=== PATIENT | male | born 1975 | race Caucasian/White ===

== ENCOUNTER 2017-08-17 16:35 | Inpatient (IN) | END 2017-09-01 15:20 | disposition home or self-care (01) | DRG 840 ==

== ENCOUNTER 2018-11-28 12:00 | Emergency (ER) | payer OTHER ==
[~2018-11-28] VITALS: Wt 89.0 kg
[~2018-11-28 12:00] MED LIST: HYDR25TA6 PO; LOPE2CAP PO; METO10TA3 PO; ONDA8TAB9 PO; POTA-57 PO; RANI150T35 PO; Saccharomyces Boulardii PO; TRAM50TA PO
[2018-11-28 12:04] VITALS: BP 134/64; PULSE 64; RESP 18
[2018-11-28] MEDS ORDERED: POLYMYXIN/TRIMETHOPRIM 10 ML OPH BOTH EYES ONE (13:00)
[2018-11-28] MEDS ORDERED: AMOX500C2 PO (13:08)
[2018-11-28] MEDS ORDERED: IBUP-1542 PO (13:09)
[2018-11-28] MEDS ORDERED: POLY10DR19 BOTH EYES (13:11)
--- NOTE | 2018-11-28 13:30 | ERD ---
ER Documentation Chief Complaint Chief Complaint TY EYE DISCHARGE HPI 43-year-old male with history of non-Hodgkin's lymphoma with completion of chemotherapy on February 12 presents with complaint of bilateral eye redness and discharge since yesterday. In addition patient states he has had a sore throat for the past week. Denies drooling, trismus, difficulty swallowing, muffled voice, difficulty breathing, rash, or neck stiffness. Patient also denies any eye pain, vision problems, impaired EOMs. Patient denies any fevers, chills, nausea, vomiting, diarrhea, productive coughs, weight loss, fatigue. ROS All systems reviewed and are negative except as per history of present illness. Medications Home Meds Active Scripts Polymyxin B Sulfate-TMP* (Polymyxin B-TMP Eye Drops*) 10 Ml Drops, 1 DROP BOTH EYES QID for 7 Days, EA Prov:WENDI TELLES 11/28/18 Ibuprofen* (Motrin*) 600 Mg Tab, 600 MG PO Q6, #30 TAB Prov:WENDI TELLES 11/28/18 Amoxicillin* (Amoxicillin*) 500 Mg Cap, 500 MG PO BID for 10 Days, CAP Prov:WENDI TELLES 11/28/18 Ondansetron Hcl* (Zofran*) 8 Mg Tablet, 8 MG PO Q6H PRN for NAUSEA AND OR VOMITING, #30 TAB Prov:ALMITA PAL NP 09/01/17 Metoclopramide Hcl* (Metoclopramide Hcl*) 10 Mg Tablet, 10 MG PO TID, #90 TAB Prov:ALMITA PAL NP 09/01/17 [Saccharomyces Boulardii] 250 MG CAP No Conflict Check, 250 MG PO BID, #60 TAB Prov:ALMITA PAL NP 09/01/17 Potassium Chloride* (Klor-Con*) 20 Meq Tabsr, 20 MEQ PO DAILY, #30 TAB Prov:ALMITA PAL NP 09/01/17 Hydrochlorothiazide* (Hydrochlorothiazide*) 25 Mg Tab, 25 MG PO DAILY, #30 TAB Prov:ALMITA PAL NP 09/01/17 Reported Medications Loperamide Hcl* (Imodium*) 2 Mg Capsule, 2 MG PO .WITH EACH DIARRHEA PRN for DIARRHEA, CAP MAX 16 mg/day 08/17/17 Tramadol Hcl* (Ultram*) 50 Mg Tablet, 50 MG PO Q6H PRN for PAIN, TAB 08/17/17 Ranitidine Hcl* (Zantac*) 150 Mg Tablet, 150 MG PO BID, #60 TAB 08/17/17 Allergies Allergies: Coded Allergies: No Known Allergy (Unverified , 11/28/18) PMhx/Soc History of Surgery: Yes (chemo port) Anesthesia Reaction: No Hx Neurological Disorder: No Hx Respiratory Disorders: No Hx Cardiac Disorders: No Hx Psychiatric Problems: No Hx Miscellaneous Medical Probl: Yes (CA) Hx Alcohol Use: No Hx Substance Use: No Hx Tobacco Use: No Smoking Status: Never smoker FmHx Family History: No diabetes, No coronary disease, No other Physical Exam Vitals Vital Signs Date Temp Pulse Resp B/P (MAP) Pulse Ox O2 O2 Flow FiO2 Time Delivery Rate 11/28/18 98.1 64 18 134/64 99 12:04 (87) Physical Exam Const: No acute distress Head: Atraumatic Eyes: Conjunctive is injected. EOMs intact. PERRLA. Thin white discharge noted. ENT: Normal External Ears, Nose and Mouth. Tonsils edematous erythematous bilaterally with exudates. Uvula is midline. There are no peritonsillar masses noted. Neck: Full range of motion. No meningismus. Mild anterior cervical lymphadenopathy. Resp: Clear to auscultation bilaterally Cardio: Regular rate and rhythm, no murmurs Abd: Soft, non tender, non distended. Normal bowel sounds Skin: No petechiae or rashes Back: No midline or flank tenderness Ext: No cyanosis, or edema Neur: Awake and alert Psych: Normal Mood and Affect Results 24 hrs Current Medications Medications Dose Sig/Talat Start Time Status Last (Trade) Ordered Route PRN Stop Time Admin Dose Reason Admin Polymyxin/ 1 drop ONCE ONCE 11/28/18 DC Trimethoprim BOTH EYES 13:00 Sulfate 11/28/18 13:01 (Polytrim Oph) Procedures/MDM MDM: Patient's presentation consistent with strep throat with conjunctivitis. Patient was given amoxicillin to treat her strep as well as Polytrim drops for the eyes. I have low suspicion for foreign body, glaucoma, globe rupture, corneal lesion, corneal ulcer, or bacterial or herpetic conjunctivitis based on exam and patient history. I have low suspicion for epiglottitis, peritonsilar abscess, ludwigs angina, retropharyngeal abscess, or other emergent etiologies based on patients exam and history. At this time, patient is stable for discharge and outpatient management. I have instructed the patient to follow-up with his/her primary care physician in 1-2 days. I have discussed with the patient the possibility of needing to see a specialist for further workup and imaging studies if symptoms persist. I have instructed the patient to promptly return to the ER for any new or worsening symptoms including but not limited to increased pain, fever, nausea, vomiting, weakness or LOC. The patient and/or family expressed understanding of and agreement with this plan. All questions were answered. Home care instructions were provided. Communication with patient both during the exam and instructions for discharge were performed with using a construction project mgr . Patient gave verbal confirmation to the practitioner, through the construction project mgr, that they understood everythign that was being said to them. DISCLAIMER: Inadvertent spelling and grammatical errors are likely due to EHR/dictation software use and do not reflect on the overall quality of patient care. Also, please note that the electronic time recorded on this note does not necessarily reflect the actual time of the patient encounter. Departure Diagnosis: Primary Impression: Strep throat Additional Impression: Conjunctivitis Conjunctivitis type: acute Acute conjunctivitis type: unspecified Laterality: bilateral Qualified Codes: H10.33 - Unspecified acute conjunctivitis, bilateral Condition: Stable Patient Instructions: Conjunctivitis Caused by Infection, Strep Throat Referrals: [facility] YOU HAVE RECEIVED A MEDICAL SCREENING EXAM AND THE RESULTS INDICATE THAT YOU DO NOT HAVE A CONDITION THAT REQUIRES URGENT TREATMENT IN THE EMERGENCY DEPARTMENT. FURTHER EVALUATION AND TREATMENT OF YOUR CONDITION CAN WAIT UNTIL YOU ARE SEEN IN YOUR DOCTORS OFFICE WITHIN THE NEXT 1-2 DAYS. IT IS YOUR RESPONSIBILITY TO MAKE AN APPOINTMENT FOR FOLOW-UP CARE. IF YOU HAVE A PRIMARY DOCTOR --you should call your primary doctor and schedule an appointment IF YOU DO NOT HAVE A PRIMARY DOCTOR YOU CAN CALL OUR PHYSICIAN REFERRAL HOTLINE AT IF YOU CAN NOT AFFORD TO SEE A PHYSICIAN YOU CAN CHOSE FROM THE FOLLOWING [facility] [address] [facility] [address] [facility]. [facility] [address] [facility] [address] [facility]. [facility] [address] [facility]. [facility]. [address] Additional Instructions: FOLLOW UP WITH YOUR PRIMARY CARE PHYSICIAN TOMORROW.Return to this facility if you are not improving as expected. WENDI TELLES Nov 28, 2018 13:30
== END 2018-11-28 13:47 | disposition home or self-care (01) ==
LOC: FTE 12:00
DX: J02.0 Streptococcal pharyngitis (principal); H10.33 Unspecified acute conjunctivitis, bilateral; Z85.72 Personal history of non-Hodgkin lymphomas
CPT/HCPCS: 99283